=== PATIENT | female | born 1985 | race Hispanic/Latino ===

== ENCOUNTER 2022-05-29 07:48 | Inpatient (IN) | payer OTHER ==
[2022-05-29] VITALS (21 sets, daily range): BP systolic 86–121; BP diastolic 47–71
[~2022-05-29] VITALS: Ht 167.6 cm; Wt 87.5 kg
[2022-05-29] MEDS ORDERED: MORPHINE 4 MG SYG ONE (08:21)
[2022-05-29] MEDS ORDERED: 0.9%NACL 1000ML 1,000 ML IV ONE ×3 (08:21→09:30)
[2022-05-29] MEDS ORDERED: ZOSYN 3.375GM+NS 50ML 50 ML ONE (08:21)
[2022-05-29] MEDS ORDERED: ONDANSETRON 4MG INJ ONE (08:21)
[2022-05-29] MEDS ORDERED: ONDANSETRON 4MG INJ IVP ONE (08:30)
[2022-05-29] MEDS ORDERED: MORPHINE 4 MG SYG IVP ONE (08:30)
[2022-05-29] MEDS: 0.9%NACL 1000ML 1,000 ML IV SCH ×2 (08:30→15:25)
[2022-05-29] MEDS ORDERED: ZOSYN 3.375GM +NS 50ML IV SCH (08:30)
[2022-05-29 08:42] LABS: BASOPHILS % (AUTO) 0.5 % (0.0-5.0); EOSINOPHILS % (AUTO) 0.6 % (0.0-8.0); HEMATOCRIT 37.5 % (36-48); LYMPHOCYTES % (AUTO) 9.4 % (21.0-51.0); MEAN CORPUSCULAR HEMOGLOBIN 27.4 pg (27.0-33.0); MEAN CORPUSCULAR HGB CONC 33.3 g/dL (32.0-36.0); MEAN CORPUSCULAR VOLUME 82.1 fL (79-99); MONOCYTES % (AUTO) 7.5 % (3.0-13.0); NEUTROPHILS % (AUTO) 78.6 % (40.0-77.0); PLATELET COUNT (AUTO) 372 K/uL (130-400); RED BLOOD CELL COUNT(AUTO) 4.57 MIL/uL (4.00-5.50); RED CELL DISTRIBUTION WIDTH 12.7 % (11.0-15.5); WHITE BLOOD COUNT (AUTO) 19.5 K/uL (4.8-10.8)
[2022-05-29 08:44] LABS: APPEARANCE,URINE SL CLOUDY (CLEAR); BILIRUBIN,URINE SMALL (NEGATIVE); COLOR,URINE YELLOW (YELLOW); GLUCOSE, URINE (UA) >=1000 mg/dL (NEGATIVE); KETONES,URINE >=80 mg/dL (NEGATIVE); LEUKOCYTE ESTERASE ,URINE NEGATIVE (NEGATIVE); NITRATE,URINE NEGATIVE (NEGATIVE); OCCULT BLOOD,URINE MODERATE (NEGATIVE); PROTEIN,URINE TRACE mg/dL (NEGATIVE)
[2022-05-29 08:51] LABS: INR 0.99 (0.85-1.15); PROTHROMBIN TIME 10.8 SEC (9.6-11.6)
[2022-05-29 08:52] LABS: PARTIAL THROMBOPLASTIN TIME 30.5 SEC (26.3-35.5)
[2022-05-29 08:57] LABS: SQUAMOUS EPITHELIAL CELL,UR 30-50 /HPF (0-2); YEAST,URINE BUDDING Few /HPF (None Seen)
[2022-05-29 08:58] LABS: BACTERIA,URINE Few /HPF (None Seen)
[2022-05-29 09:09] LABS: ALBUMIN 2.4 g/dL (3.5-5.0); CREATININE 0.7 mg/dL (0.5-1.5); POTASSIUM 3.2 mmol/L (3.5-5.1); TOTAL PROTEIN, SERUM 7.3 g/dL (6.0-8.3)
[2022-05-29 09:18] LABS: ABG OXYGEN SATURATION 53.2 % (95.0-99.0); BASE EXCESS,VENOUS BLOOD GAS -2.6 (-2.0-3.0); HCO3,VENOUS BLOOD GAS 22.7 (21.0-28.0); PCO2,VENOUS BLOOD GAS 41 (32-45); PH,VENOUS BLOOD GAS 7.357 (7.350-7.450)
[2022-05-29] MEDS ORDERED: POTASSIUM BICARB/CIT AC 25 MEQ TABLET.EFF ONE (09:23)
[2022-05-29] MEDS ORDERED: TETANUS/DIPHTHERIA TOXOID [ADULT] 0.5 ML VIAL IM ONE (09:30)
[2022-05-29] MEDS ORDERED: POTASSIUM BICARB/CIT AC 25 MEQ TABLET.EFF PO ONE (09:30)
[2022-05-29] MEDS ORDERED: IOHEXOL 350 MG/ML 100ML INFUS..BTL IV ONE (09:40)
[2022-05-29] MEDS ORDERED: FENTANYL CITRATE PF 50 MCG/1 ML 5ML AMP IV ONE (12:22)
[2022-05-29] MEDS ORDERED: ROCURONIUM 10MG/1ML SYR 10 MG/ML ML ONE (12:22)
[2022-05-29] MEDS ORDERED: MIDAZOLAM HCL 1 MG/ML 2ML VIAL ONE (12:22)
[2022-05-29] MEDS ORDERED: GENTAMICIN 120 MG IN 100ML NS 100 ML IV SCH (12:30)
[2022-05-29] MEDS: INSULIN R PO SS1 SQ SCH ×2 (12:30→20:30)
[2022-05-29] MEDS ORDERED: METOCLOPRAMIDE 10 MG/2 ML VIAL ONE (12:56)
[2022-05-29] MEDS: CLINDAMYCIN IVPB 900MG/50ML 50 ML IV SCH ×2 (13:03→20:48)
[2022-05-29] MEDS ORDERED: HYDROMORPHONE 1 MG INJ ONE (13:09)
[2022-05-29] MEDS ORDERED: GLYCOPYRROLATE 1 MG/5 ML SYRINGE ONE (13:54)
[2022-05-29] MEDS ORDERED: NEOSTIGMINE 5MG/5ML SYR IV ONE (13:54)
[2022-05-29] MEDS ORDERED: FENTANYL CITRATE PF 50 MCG/1 ML 2ML VIAL ONE (13:55)
[2022-05-29] MEDS ORDERED: KETOROLAC 30MG VIAL (30MG/ML) ONE (13:58)
[2022-05-29] MEDS ORDERED: ACETAMINOPHEN WITH CODEINE 1 TAB TAB PO PRN (14:30)
[2022-05-29] MEDS ORDERED: FLUCONAZOLE 100 MG TAB PO ONE (14:30)
[2022-05-29] MEDS ORDERED: BISACODYL 10 MG SUPP.RECT RC PRN (14:30)
[2022-05-29] MEDS ORDERED: POTASSIUM CHLORIDE 10MEQ/100ML 100 ML IV PRN (14:30)
[2022-05-29] MEDS ORDERED: PROMETHAZINE HCL 25 MG/ML 1ML AMPULE IM PRN ×2 (14:30)
[2022-05-29] MEDS ORDERED: 0.9%NACL 1000ML 1,000 ML IV SCH ×2 (14:30)
[2022-05-29] MEDS ORDERED: MEPERIDINE-PF 75 MG/ML SYG IM PRN (14:30)
[2022-05-29] MEDS ORDERED: ONDANSETRON 4MG INJ IVP PRN (14:30)
[2022-05-29] MEDS ORDERED: NAPR220C15 PO (16:19)
[2022-05-29] MEDS ORDERED: INSULIN HUMULIN R 100 UNIT/ML 3ML SQ SCH (16:30)
[2022-05-29] MEDS: METFORMIN HCL 500 MG TABLET PO SCH (16:53)
[2022-05-29] MEDS ORDERED: LIDOCAINE HCL-MPF 1% 2ML VIAL IV PRN (19:30)
[2022-05-29] MEDS ORDERED: POTASSIUM CHLORIDE 20MEQ/100ML 100 ML IV PRN (19:30)
[2022-05-29] MEDS ORDERED: POTASSIUM CHLORIDE 10% ELIXIR 20 MEQ/15 ML UDCUP PO PRN (19:30)
[2022-05-29] MEDS: PROMETHAZINE HCL 25 MG/ML 1ML AMPULE IM PRN (20:05)
[2022-05-29] MEDS: CEFTRIAXONE 1G VIAL IVP SCH (20:47)
[2022-05-29] MEDS: SIMETHICONE 80 MG TAB.CHEW PO PRN (20:49)
[2022-05-29] MEDS: DOCUSATE SODIUM 100 MG CAP PO PRN (20:49)
[2022-05-29] MEDS: GENTAMICIN 80 MG/NS 100 ML PB 100 ML IV SCH (20:49)
[2022-05-29 21:19] LABS: CREATININE 0.5 mg/dL (0.5-1.5); POTASSIUM 3.6 mmol/L (3.5-5.1)
[2022-05-29] MEDS: KCL 20 MEQ ERTAB PO PRN ×2 (21:51→23:41)
[2022-05-29] MEDS: FAMOTIDINE 20MG TAB PO SCH (21:52)
[2022-05-29] MEDS: INSULIN HUMULIN R 100 UNIT/ML 3ML SQ SCH (22:05)
[2022-05-29] MEDS: CALDOLOR 800MG+NS 250ML 250 ML IV SCH (22:47)
[2022-05-30] MEDS: INSULIN R PO SS1 SQ SCH ×3 (00:30→08:30)
[2022-05-30 03:38] VITALS: BP 106/66
[2022-05-30] MEDS: 0.9%NACL 1000ML 1,000 ML IV SCH ×2 (04:35→21:56)
[2022-05-30 05:49] LABS: HEMATOCRIT 26.1 % (36-48); MEAN CORPUSCULAR HGB CONC 31.8 g/dL (32.0-36.0); RED BLOOD CELL COUNT(AUTO) 3.07 MIL/uL (4.00-5.50); RED CELL DISTRIBUTION WIDTH 13.1 % (11.0-15.5); WHITE BLOOD COUNT (AUTO) 18.8 K/uL (4.8-10.8)
[2022-05-30] MEDS: CLINDAMYCIN IVPB 900MG/50ML 50 ML IV SCH ×3 (05:49→21:00)
[2022-05-30] MEDS: GENTAMICIN 80 MG/NS 100 ML PB 100 ML IV SCH ×3 (05:49→21:56)
[2022-05-30 05:59] LABS: CREATININE 0.6 mg/dL (0.5-1.5); POTASSIUM 4.1 mmol/L (3.5-5.1)
[2022-05-30 06:04] LABS: HEMOGLOBIN A1C 11.1 % (4.0-6.0)
[2022-05-30] MEDS: INSULIN HUMULIN R 100 UNIT/ML 3ML SQ SCH ×6 (07:53→20:48)
[2022-05-30] MEDS: CALDOLOR 800MG+NS 250ML 250 ML IV SCH (07:55)
[2022-05-30] MEDS: FAMOTIDINE 20MG TAB PO SCH ×2 (07:55→20:47)
[2022-05-30] MEDS: METFORMIN HCL 500 MG TABLET PO SCH (07:55)
[2022-05-30] MEDS: DOCUSATE SODIUM 100 MG CAP PO PRN ×2 (07:59→20:47)
[2022-05-30 08:23] VITALS: BP 104/71
[2022-05-30 12:07] VITALS: BP 118/65
[2022-05-30] MEDS: IBUPROFEN 800 MG TAB PO SCH ×2 (14:27→21:53)
[2022-05-30 16:18] VITALS: BP 115/72
[2022-05-30] MEDS: HYDROCODONE/ACETAMINOPHEN 5/325 MG TAB PO PRN (17:33)
[2022-05-30] MEDS: CEFTRIAXONE 1G VIAL IVP SCH (18:40)
[2022-05-30 19:25] VITALS: BP 116/73
[2022-05-30] MEDS ORDERED: INSULIN GLARGINE 100 UNITS/ML 10 ML VIAL SQ SCH (21:00)
[2022-05-30] MEDS: SIMETHICONE 80 MG TAB.CHEW PO PRN (21:53)
[2022-05-30 23:05] VITALS: BP 107/72
[2022-05-31 02:45] VITALS: BP 113/72
[2022-05-31] MEDS: HYDROCODONE/ACETAMINOPHEN 5/325 MG TAB PO PRN ×2 (03:14→18:14)
[2022-05-31] MEDS: CLINDAMYCIN IVPB 900MG/50ML 50 ML IV SCH ×3 (05:16→20:45)
[2022-05-31] MEDS: GENTAMICIN 80 MG/NS 100 ML PB 100 ML IV SCH ×3 (05:53→21:13)
[2022-05-31] MEDS: IBUPROFEN 800 MG TAB PO SCH ×3 (05:58→22:24)
[2022-05-31 07:31] VITALS: BP 115/77
[2022-05-31] MEDS: FAMOTIDINE 20MG TAB PO SCH ×2 (08:15→20:46)
[2022-05-31] MEDS: INSULIN HUMULIN R 100 UNIT/ML 3ML SQ SCH ×7 (08:19→21:07)
[2022-05-31] MEDS: 0.9%NACL 1000ML 1,000 ML IV SCH ×3 (09:55→22:30)
[2022-05-31 11:31] LABS: HEMATOCRIT 27.2 % (36-48); MEAN CORPUSCULAR HEMOGLOBIN 26.8 pg (27.0-33.0); MEAN CORPUSCULAR HGB CONC 31.6 g/dL (32.0-36.0); MEAN CORPUSCULAR VOLUME 84.7 fL (79-99); RED BLOOD CELL COUNT(AUTO) 3.21 MIL/uL (4.00-5.50); RED CELL DISTRIBUTION WIDTH 13.2 % (11.0-15.5); WHITE BLOOD COUNT (AUTO) 14.6 K/uL (4.8-10.8)
[2022-05-31 11:39] LABS: CREATININE 0.5 mg/dL (0.5-1.5); POTASSIUM 3.4 mmol/L (3.5-5.1)
[2022-05-31 12:00] VITALS: BP 115/72
[2022-05-31] MEDS: PROMETHAZINE HCL 25 MG/ML 1ML AMPULE IM PRN (15:38)
[2022-05-31] MEDS: MEPERIDINE-PF 50 MG/ML SYG IM PRN (15:39)
[2022-05-31] MEDS ORDERED: MEPERIDINE-PF 25 MG/ML SYG ONE (15:45)
[2022-05-31] MEDS ORDERED: MORPHINE 4 MG SYG ONE (16:29)
[2022-05-31] MEDS ORDERED: MORPHINE 4 MG SYG IVP PRN (16:30)
[2022-05-31] MEDS ORDERED: MEPERIDINE-PF 25 MG/ML SYG IVP ONE (16:30)
[2022-05-31 17:30] VITALS: BP 126/83
[2022-05-31 19:50] VITALS: BP 137/91
[2022-05-31] MEDS ORDERED: INSULIN GLARGINE 100 UNITS/ML 10 ML VIAL SQ SCH (21:00)
[2022-05-31 23:00] VITALS: BP 139/84
[2022-06-01 02:55] VITALS: BP 124/72
[2022-06-01] MEDS: CLINDAMYCIN IVPB 900MG/50ML 50 ML IV SCH (05:11)
[2022-06-01] MEDS: GENTAMICIN 80 MG/NS 100 ML PB 100 ML IV SCH (05:30)
[2022-06-01] MEDS: 0.9%NACL 1000ML 1,000 ML IV SCH ×2 (05:31→05:32)
[2022-06-01] MEDS: IBUPROFEN 800 MG TAB PO SCH ×3 (07:28→23:05)
[2022-06-01] MEDS: INSULIN HUMULIN R 100 UNIT/ML 3ML SQ SCH ×7 (07:30→21:05)
[2022-06-01 07:40] VITALS: BP 118/70
[2022-06-01] MEDS: FAMOTIDINE 20MG TAB PO SCH ×2 (08:11→20:23)
[2022-06-01 11:36] VITALS: BP 123/73
[2022-06-01] MEDS: DOCUSATE SODIUM 100 MG CAP PO PRN (12:24)
[2022-06-01] MEDS: HYDROCODONE/ACETAMINOPHEN 5/325 MG TAB PO PRN (12:25)
[2022-06-01 17:07] VITALS: BP 127/76
[2022-06-01 20:05] VITALS: BP 131/84
[2022-06-01] MEDS: PROMETHAZINE HCL 25 MG/ML 1ML AMPULE IM PRN (20:24)
[2022-06-01] MEDS: MEPERIDINE-PF 50 MG/ML SYG IM PRN (20:25)
[2022-06-01 22:52] VITALS: BP 135/80
[2022-06-02 03:16] VITALS: BP 112/73
[2022-06-02] MEDS: HYDROCODONE/ACETAMINOPHEN 5/325 MG TAB PO PRN ×2 (05:13→17:38)
[2022-06-02] MEDS: IBUPROFEN 800 MG TAB PO SCH ×3 (06:34→22:52)
[2022-06-02 07:14] VITALS: BP 139/74
[2022-06-02] MEDS: INSULIN HUMULIN R 100 UNIT/ML 3ML SQ SCH ×4 (07:57→21:38)
[2022-06-02] MEDS: AMOXICILLIN 500 MG CAPSULE PO SCH ×2 (08:52→14:26)
[2022-06-02] MEDS: FAMOTIDINE 20MG TAB PO SCH ×2 (08:52→21:18)
[2022-06-02] MEDS: METFORMIN HCL 500 MG TABLET PO SCH ×3 (08:53→17:38)
[2022-06-02] MEDS: METRONIDAZOLE 500 MG TABLET PO SCH ×3 (08:53→21:18)
[2022-06-02 10:14] LABS: BASOPHILS % (AUTO) 0.2 % (0.0-5.0); EOSINOPHILS % (AUTO) 0.7 % (0.0-8.0); HEMATOCRIT 23.2 % (36-48); MEAN CORPUSCULAR HEMOGLOBIN 27.5 pg (27.0-33.0); MEAN CORPUSCULAR HGB CONC 32.8 g/dL (32.0-36.0); MEAN CORPUSCULAR VOLUME 84.1 fL (79-99); MONOCYTES % (AUTO) 5.6 % (3.0-13.0); NEUTROPHILS % (AUTO) 83.8 % (40.0-77.0); PLATELET COUNT (AUTO) 340 K/uL (130-400); RED BLOOD CELL COUNT(AUTO) 2.76 MIL/uL (4.00-5.50); RED CELL DISTRIBUTION WIDTH 13.1 % (11.0-15.5); WHITE BLOOD COUNT (AUTO) 16.2 K/uL (4.8-10.8)
[2022-06-02 10:27] LABS: RETICULOCYTE % (AUTO) 1.51 % (0.42-2.23)
[2022-06-02 10:32] LABS: CREATININE 0.6 mg/dL (0.5-1.5); POTASSIUM 3.4 mmol/L (3.5-5.1)
[2022-06-02 10:50] LABS: % IRON SATURATION 7.7 % (22-44)
[2022-06-02 10:52] LABS: THYROID STIMULATING HORMONE 1.55 uIU/mL (0.36-3.74)
[2022-06-02 11:20] VITALS: BP 107/69
[2022-06-02 11:29] LABS: CRP QUANTITATIVE 258.5 mg/L (0.00-9.0)
[2022-06-02 11:30] LABS: ERYTHROCYTE SEDIMENTATION RATE > 150 MM/HR (0-20)
[2022-06-02] MEDS: MEPERIDINE-PF 50 MG/ML SYG IM PRN (16:50)
[2022-06-02] MEDS: PROMETHAZINE HCL 25 MG/ML 1ML AMPULE IM PRN (16:50)
[2022-06-02 17:04] VITALS: BP 132/84
[2022-06-02 19:19] VITALS: BP 123/77
[2022-06-02] MEDS: KCL 20 MEQ ERTAB PO PRN ×2 (19:56→22:52)
[2022-06-02] MEDS ORDERED: COMPOUND IV MISC 1 EACH IVSOLN MISC PRN (20:30)
[2022-06-02] MEDS ORDERED: IRON SUCROSE COMPLEX 500 MG in 0.9% NACL 250ML 250 ML IV ONE (21:00)
[2022-06-02] MEDS ORDERED: INSULIN GLARGINE 100 UNITS/ML 10 ML VIAL SQ SCH (21:00)
[2022-06-02] MEDS ORDERED: EPOETIN ALFA-EPBX (NON-ESRD) 10,000 UNIT/ML VIAL SQ SCH (21:00)
[2022-06-02] MEDS: SIMETHICONE 80 MG TAB.CHEW PO PRN (21:17)
[2022-06-02] MEDS: AMOX/CLAV 500/125MG TAB PO SCH (21:18)
[2022-06-02] MEDS: DOCUSATE SODIUM 100 MG CAP PO PRN (21:18)
[2022-06-02 23:03] VITALS: BP 102/65
[2022-06-03] MEDS: HYDROCODONE/ACETAMINOPHEN 5/325 MG TAB PO PRN (00:55)
[2022-06-03 04:07] VITALS: BP 102/71
[2022-06-03] MEDS: AMOX/CLAV 500/125MG TAB PO SCH (04:48)
[2022-06-03] MEDS: IBUPROFEN 800 MG TAB PO SCH ×2 (06:22→14:44)
[2022-06-03] MEDS ORDERED: EPOETIN ALFA-EPBX (NON-ESRD) 10,000 UNIT/ML VIAL SQ SCH (07:30)
[2022-06-03 07:38] VITALS: BP 113/71
[2022-06-03 07:54] LABS: BASOPHILS % (AUTO) 0.3 % (0.0-5.0); EOSINOPHILS % (AUTO) 0.9 % (0.0-8.0); HEMATOCRIT 23.5 % (36-48); LYMPHOCYTES % (AUTO) 7.2 % (21.0-51.0); MEAN CORPUSCULAR HEMOGLOBIN 27.2 pg (27.0-33.0); MEAN CORPUSCULAR HGB CONC 31.5 g/dL (32.0-36.0); MEAN CORPUSCULAR VOLUME 86.4 fL (79-99); MONOCYTES % (AUTO) 5.4 % (3.0-13.0); NEUTROPHILS % (AUTO) 84.5 % (40.0-77.0); PLATELET COUNT (AUTO) 374 K/uL (130-400); RED BLOOD CELL COUNT(AUTO) 2.72 MIL/uL (4.00-5.50); RED CELL DISTRIBUTION WIDTH 13.1 % (11.0-15.5); WHITE BLOOD COUNT (AUTO) 18.5 K/uL (4.8-10.8)
[2022-06-03] MEDS ORDERED: SENNOSIDES 8.6 MG TABLET PO SCH (08:30)
[2022-06-03] MEDS: FAMOTIDINE 20MG TAB PO SCH (08:59)
[2022-06-03] MEDS: DOCUSATE SODIUM 100 MG CAP PO PRN (08:59)
[2022-06-03] MEDS: METFORMIN HCL 500 MG TABLET PO SCH (08:59)
[2022-06-03] MEDS: METRONIDAZOLE 500 MG TABLET PO SCH (08:59)
[2022-06-03] MEDS: INSULIN HUMULIN R 100 UNIT/ML 3ML SQ SCH ×7 (09:15→17:21)
[2022-06-03 11:20] VITALS: BP 104/69
[2022-06-03] MEDS ORDERED: ZOSYN 3.375GM +NS 50ML IV SCH (11:30)
[2022-06-03] MEDS ORDERED: LINEZOLID 600 MG/ISO-OSM 300 ML IV SCH (12:00)
[2022-06-03] MEDS ORDERED: IOHEXOL 350 MG/ML 100ML INFUS..BTL IV ONE (12:01)
[2022-06-03] MEDS ORDERED: MORPHINE 4 MG SYG IVP PRN (12:30)
[2022-06-03] MEDS ORDERED: AMOX/CLAV 875/125MG TAB PO SCH (14:00)
[2022-06-03 16:41] VITALS: BP 117/72
[2022-06-03] MEDS ORDERED: IBUP-2077 PO (17:37)
[2022-06-03] MEDS ORDERED: AMOX-426 PO (17:37)
[2022-06-03] MEDS ORDERED: METF-444 PO (17:38)
[2022-06-03] MEDS ORDERED: INSLAN SQ (17:38)
[2022-06-03] MEDS ORDERED: INSULIN GLARGINE 100 UNITS/ML 10 ML VIAL SQ SCH (21:00)
== END 2022-06-03 18:45 | disposition home or self-care (01) | DRG 746 ==
LOC: EDH 07:48 → EDHIP 10:27 → WSH 11:36
PROVIDERS: ADMIT Obstetrics & Gynecology; ATTEND Obstetrics & Gynecology
PROC: 0U9M0ZZ Drainage of Vulva, Open Approach (ICD-10-PCS; principal; 2022-05-29 13:09)
DX: N76.4 Abscess of vulva (principal); N39.0 Urinary tract infection, site not specified; E11.65 Type 2 diabetes mellitus with hyperglycemia; E66.9 Obesity, unspecified; E87.6 Hypokalemia; Z68.31 Body mass index [BMI] 31.0-31.9, adult; Z20.822 Contact with and (suspected) exposure to COVID-19; Z83.3 Family history of diabetes mellitus; Z82.49 Family history of ischemic heart disease and other diseases of the circulatory system; D50.9 Iron deficiency anemia, unspecified
CPT/HCPCS: 36415; 36600; 59025; 72193; 80048; 80053; 81001; 81025; 82010; 82728; 82746; 82803; 82948; 83036; 83540; 83550; 83605; 84132; 84145; 84443; 85025; 85027; 85045; 85610; 85651; 85730; 86140; 86850; 86900; 86901; 87040; 87070; 87076; 87088; 87635; 90714; A4344; A4606; G0378; J0696; J1170; J1580; J1741; J1756; J1815; J1885; J2020; J2175; J2250; J2270; J2405; J2543; J2550; J2710; J2765; J3010; J3490; J7030; J7050; J7120; Q9967

== ENCOUNTER → 2022-06-07 | Outpatient (CLI) | payer OTHER ==
[~2022-06-07] MED LIST: AMOX-426 PO; IBUP-2077 PO; INSLAN SQ; METF-444 PO
== END | disposition home or self-care (01) ==
LOC: WHH 13:45
PROVIDERS: ATTEND Family Medicine
DX: T81.89XA Other complications of procedures, not elsewhere classified, initial encounter (principal); S31.40XA Unspecified open wound of vagina and vulva, initial encounter; E11.9 Type 2 diabetes mellitus without complications; E66.9 Obesity, unspecified; Z68.31 Body mass index [BMI] 31.0-31.9, adult; Y83.8 Other surgical procedures as the cause of abnormal reaction of the patient, or of later complication, without mention of misadventure at the time of the procedure; X58.XXXA Exposure to other specified factors, initial encounter; Y93.89 Activity, other specified; Y92.238 Other place in hospital as the place of occurrence of the external cause; Y99.8 Other external cause status
CPT/HCPCS: 97606; 99211

== ENCOUNTER 2022-06-10 12:06 | Inpatient (IN) | payer OTHER ==
[~2022-06-10] VITALS: Ht 160 cm; Wt 81.4 kg
[~2022-06-10 12:06] MED LIST changes: -AMP/SULBAC 3GM+NS 100ML 100 ML IV SCH; -LIDOCAINE HCL 4% LTA SOL 4 ML VIAL TP ONE
[2022-06-10] MEDS ORDERED: ONDANSETRON 4MG INJ IV PRN (14:00)
[2022-06-10] MEDS ORDERED: BISACODYL 5 MG TABLET.DR PO PRN (14:00)
[2022-06-10] MEDS ORDERED: VANCOMYCIN PROTOCOL PER PHARMACY IV PRN (14:00)
[2022-06-10] MEDS ORDERED: ACETAMINOPHEN 325 MG TAB PO PRN (14:00)
[2022-06-10 15:15] LABS: HEMOGLOBIN A1C 11.1 % (4.0-6.0)
[2022-06-10] MEDS: CEFEPIME HCL 1 GM VIAL IVP SCH ×2 (15:42→22:26)
[2022-06-10] MEDS: VANCOMYCIN 1G/250ML KIT 250 ML IV SCH (15:42)
[2022-06-10] MEDS: HYDROMORPHONE 0.5 MG SYG (0.5MG/0.5ML) IVP PRN ×3 (15:43→22:26)
[2022-06-10 16:16] VITALS: BP 119/76
[2022-06-10] MEDS: INSULIN LISPRO 100 UNIT/ML 3ML SQ SCH ×3 (18:22→20:51)
[2022-06-10] MEDS: FAMOTIDINE 20MG VIAL IV SCH (20:48)
[2022-06-10] MEDS: INSULIN GLARGINE 100 UNITS/ML 10 ML VIAL SQ SCH (20:49)
[2022-06-10 20:54] VITALS: BP 126/78
[2022-06-10] MEDS ORDERED: TRAZODONE HCL 50 MG TAB ONE (22:44)
[2022-06-10] MEDS ORDERED: FLUOXETINE HCL 20 MG CAPSULE ONE (22:44)
[2022-06-11 00:10] VITALS: BP 109/74
[2022-06-11] MEDS: HYDROMORPHONE 0.5 MG SYG (0.5MG/0.5ML) IVP PRN ×5 (03:07→20:42)
[2022-06-11] MEDS: VANCOMYCIN 1G/250ML KIT 250 ML IV SCH ×2 (03:13→14:43)
[2022-06-11 05:03] VITALS: BP 121/68
[2022-06-11 05:21] LABS: BASOPHILS % (AUTO) 0.3 % (0.0-5.0); EOSINOPHILS % (AUTO) 1.8 % (0.0-8.0); HEMATOCRIT 29.3 % (36-48); LYMPHOCYTES % (AUTO) 16.1 % (21.0-51.0); MEAN CORPUSCULAR HEMOGLOBIN 26.9 pg (27.0-33.0); MEAN CORPUSCULAR HGB CONC 31.7 g/dL (32.0-36.0); MEAN CORPUSCULAR VOLUME 84.7 fL (79-99); MONOCYTES % (AUTO) 6.5 % (3.0-13.0); NEUTROPHILS % (AUTO) 74.3 % (40.0-77.0); RED BLOOD CELL COUNT(AUTO) 3.46 MIL/uL (4.00-5.50); RED CELL DISTRIBUTION WIDTH 13.7 % (11.0-15.5); WHITE BLOOD COUNT (AUTO) 11.7 K/uL (4.8-10.8)
[2022-06-11 05:30] LABS: PLATELET COUNT (AUTO) 751 K/uL (130-400)
[2022-06-11 05:41] LABS: ALBUMIN 2.2 g/dL (3.5-5.0); CREATININE 0.7 mg/dL (0.5-1.5); TOTAL PROTEIN, SERUM 7.3 g/dL (6.0-8.3)
[2022-06-11] MEDS ORDERED: IOHEXOL 350 MG/ML 100ML INFUS..BTL IV ONE (05:52)
[2022-06-11 05:54] LABS: CRP QUANTITATIVE 348.9 mg/L (0.00-9.0)
[2022-06-11] MEDS: CEFEPIME HCL 1 GM VIAL IVP SCH ×3 (06:17→21:57)
[2022-06-11] MEDS: INSULIN LISPRO 100 UNIT/ML 3ML SQ SCH ×7 (06:38→20:50)
[2022-06-11 07:20] VITALS: BP 132/76
[2022-06-11] MEDS ORDERED: LIDOCAINE HCL MPF 1% 5ML VIAL ONE (09:56)
[2022-06-11] MEDS ORDERED: HYDROMORPHONE 1 MG INJ IVP SCH (10:00)
[2022-06-11] MEDS: FAMOTIDINE 20MG VIAL IV SCH ×2 (10:26→20:40)
[2022-06-11] MEDS: ENOXAPARIN SODIUM 40 MG/0.4 ML SYRINGE SQ SCH (10:26)
[2022-06-11 11:10] VITALS: BP 125/76
[2022-06-11 15:15] VITALS: BP 122/73
[2022-06-11] MEDS: MORPHINE 4 MG SYG IVP PRN (16:44)
[2022-06-11] MEDS: ACETAMINOPHEN 325 MG TAB PO PRN (18:28)
[2022-06-11 20:20] VITALS: BP 121/70
[2022-06-11] MEDS: INSULIN GLARGINE 100 UNITS/ML 10 ML VIAL SQ SCH (20:50)
[2022-06-12] VITALS (7 sets, daily range): BP systolic 114–134; BP diastolic 68–77
[2022-06-12] MEDS: MORPHINE 4 MG SYG IVP PRN ×2 (00:53→09:36)
[2022-06-12] MEDS: ACETAMINOPHEN 325 MG TAB PO PRN (03:18)
[2022-06-12] MEDS: HYDROMORPHONE 0.5 MG SYG (0.5MG/0.5ML) IVP PRN ×2 (04:28→11:15)
[2022-06-12] MEDS: VANCOMYCIN 1G/250ML KIT 250 ML IV SCH (04:28)
[2022-06-12 05:40] LABS: BASOPHILS % (AUTO) 0.5 % (0.0-5.0); EOSINOPHILS % (AUTO) 1.5 % (0.0-8.0); HEMATOCRIT 25.4 % (36-48); LYMPHOCYTES % (AUTO) 15.7 % (21.0-51.0); MEAN CORPUSCULAR HEMOGLOBIN 26.7 pg (27.0-33.0); MEAN CORPUSCULAR HGB CONC 31.9 g/dL (32.0-36.0); MEAN CORPUSCULAR VOLUME 83.8 fL (79-99); MONOCYTES % (AUTO) 8.7 % (3.0-13.0); NEUTROPHILS % (AUTO) 72.8 % (40.0-77.0); PLATELET COUNT (AUTO) 650 K/uL (130-400); RED BLOOD CELL COUNT(AUTO) 3.03 MIL/uL (4.00-5.50); RED CELL DISTRIBUTION WIDTH 13.8 % (11.0-15.5)
[2022-06-12 05:53] LABS: ALBUMIN 2.1 g/dL (3.5-5.0); CREATININE 0.7 mg/dL (0.5-1.5); POTASSIUM 3.7 mmol/L (3.5-5.1); TOTAL PROTEIN, SERUM 6.9 g/dL (6.0-8.3)
[2022-06-12 06:00] LABS: CRP QUANTITATIVE 232.1 mg/L (0.00-9.0)
[2022-06-12] MEDS: CEFEPIME HCL 1 GM VIAL IVP SCH ×3 (06:13→22:22)
[2022-06-12] MEDS: INSULIN LISPRO 100 UNIT/ML 3ML SQ SCH ×7 (06:19→22:20)
[2022-06-12] MEDS: FAMOTIDINE 20MG VIAL IV SCH ×2 (09:33→22:22)
[2022-06-12] MEDS: ENOXAPARIN SODIUM 40 MG/0.4 ML SYRINGE SQ SCH (09:33)
[2022-06-12] MEDS: SODIUM HYPOCHLORITE 0.25% [HALF STRENGTH] 473 ML TOPICAL SOLN TP SCH (11:15)
[2022-06-12] MEDS ORDERED: HYDROMORPHONE 1 MG INJ ONE (14:11)
[2022-06-12] MEDS ORDERED: OXYCODONE HCL 20 MG TAB.SR.12H PO SCH (14:30)
[2022-06-12] MEDS ORDERED: HYDROMORPHONE 1 MG INJ IVP PRN (14:30)
[2022-06-12] MEDS: INSULIN GLARGINE 100 UNITS/ML 10 ML VIAL SQ SCH (22:19)
[2022-06-12] MEDS: OXYCODONE HCL 20 MG TAB.SR.12H PO SCH (22:22)
[2022-06-13 03:42] VITALS: BP 128/82
[2022-06-13] MEDS: ACETAMINOPHEN 325 MG TAB PO PRN (04:44)
[2022-06-13 04:50] LABS: BASOPHILS % (AUTO) 0.6 % (0.0-5.0); EOSINOPHILS % (AUTO) 1.9 % (0.0-8.0); HEMATOCRIT 26.9 % (36-48); MEAN CORPUSCULAR HEMOGLOBIN 26.9 pg (27.0-33.0); MEAN CORPUSCULAR HGB CONC 32.3 g/dL (32.0-36.0); MEAN CORPUSCULAR VOLUME 83.3 fL (79-99); MONOCYTES % (AUTO) 10.3 % (3.0-13.0); NEUTROPHILS % (AUTO) 66.8 % (40.0-77.0); PLATELET COUNT (AUTO) 629 K/uL (130-400); RED BLOOD CELL COUNT(AUTO) 3.23 MIL/uL (4.00-5.50); RED CELL DISTRIBUTION WIDTH 13.4 % (11.0-15.5)
[2022-06-13 05:11] LABS: % IRON SATURATION 24.7 % (22-44)
[2022-06-13 05:25] LABS: ALBUMIN 2.1 g/dL (3.5-5.0); CREATININE 0.7 mg/dL (0.5-1.5); POTASSIUM 3.5 mmol/L (3.5-5.1); THYROID STIMULATING HORMONE 1.1 uIU/mL (0.36-3.74)
[2022-06-13 05:41] LABS: CRP QUANTITATIVE 226.3 mg/L (0.00-9.0)
[2022-06-13] MEDS: CEFEPIME HCL 1 GM VIAL IVP SCH ×3 (06:26→22:21)
[2022-06-13] MEDS: INSULIN LISPRO 100 UNIT/ML 3ML SQ SCH ×7 (06:58→20:21)
[2022-06-13 08:00] VITALS: BP 105/62
[2022-06-13] MEDS: FAMOTIDINE 20MG VIAL IV SCH ×2 (08:34→20:34)
[2022-06-13] MEDS: OXYCODONE HCL 20 MG TAB.SR.12H PO SCH ×2 (08:34→20:35)
[2022-06-13] MEDS: ENOXAPARIN SODIUM 40 MG/0.4 ML SYRINGE SQ SCH (08:35)
[2022-06-13 11:23] VITALS: BP 114/67
[2022-06-13] MEDS: HYDROMORPHONE 0.5 MG SYG (0.5MG/0.5ML) IVP PRN ×2 (14:10→21:04)
[2022-06-13] MEDS: SODIUM HYPOCHLORITE 0.25% [HALF STRENGTH] 473 ML TOPICAL SOLN TP SCH (15:34)
[2022-06-13 16:00] VITALS: BP 122/81
[2022-06-13] MEDS ORDERED: LORAZEPAM 2 MG/ML 1 ML VIAL IVP PRN (17:00)
[2022-06-13] MEDS ORDERED: PHARMACY COMMUNICATION MISC SCH (17:30)
[2022-06-13] MEDS ORDERED: GADOTERATE MEGLUMINE 10 MMOL/20 ML VIAL IV ONE (18:36)
[2022-06-13] MEDS ORDERED: DIAZEPAM 5 MG/ML 2 ML SYG ONE (18:51)
[2022-06-13] MEDS ORDERED: DIAZEPAM 5 MG/ML 2 ML SYG IVP SCH (19:00)
[2022-06-13] MEDS ORDERED: DIAZEPAM 5 MG/ML 2 ML SYG IVP ONE (19:30)
[2022-06-13 19:35] VITALS: BP 110/74
[2022-06-13] MEDS: INSULIN GLARGINE 100 UNITS/ML 10 ML VIAL SQ SCH (20:36)
[2022-06-13 23:20] VITALS: BP 118/72
[2022-06-14 03:13] VITALS: BP 110/67
[2022-06-14 04:53] LABS: BASOPHILS % (AUTO) 0.7 % (0.0-5.0); LYMPHOCYTES % (AUTO) 18.3 % (21.0-51.0); MEAN CORPUSCULAR HEMOGLOBIN 26.5 pg (27.0-33.0); MEAN CORPUSCULAR HGB CONC 31.9 g/dL (32.0-36.0); MEAN CORPUSCULAR VOLUME 83.1 fL (79-99); MONOCYTES % (AUTO) 11.2 % (3.0-13.0); NEUTROPHILS % (AUTO) 67.2 % (40.0-77.0); PLATELET COUNT (AUTO) 592 K/uL (130-400); RED BLOOD CELL COUNT(AUTO) 3.13 MIL/uL (4.00-5.50); RED CELL DISTRIBUTION WIDTH 13.5 % (11.0-15.5)
[2022-06-14 05:08] LABS: CREATININE 0.7 mg/dL (0.5-1.5); POTASSIUM 3.4 mmol/L (3.5-5.1)
[2022-06-14 05:23] LABS: CRP QUANTITATIVE 197.5 mg/L (0.00-9.0)
[2022-06-14] MEDS: CEFEPIME HCL 1 GM VIAL IVP SCH ×3 (06:03→22:11)
[2022-06-14] MEDS: INSULIN LISPRO 100 UNIT/ML 3ML SQ SCH ×7 (06:50→21:00)
[2022-06-14 08:00] VITALS: BP 105/71
[2022-06-14] MEDS: FLUCONAZOLE 200 MG/NS 100 ML 100 ML IV SCH (10:37)
[2022-06-14] MEDS: FAMOTIDINE 20MG VIAL IV SCH ×2 (10:37→20:11)
[2022-06-14] MEDS: OXYCODONE HCL 20 MG TAB.SR.12H PO SCH ×2 (10:49→20:11)
[2022-06-14] MEDS: ENOXAPARIN SODIUM 40 MG/0.4 ML SYRINGE SQ SCH (10:49)
[2022-06-14] MEDS: SODIUM HYPOCHLORITE 0.25% [HALF STRENGTH] 473 ML TOPICAL SOLN TP SCH (10:49)
[2022-06-14 11:41] VITALS: BP 115/73
[2022-06-14 16:00] VITALS: BP 126/76
[2022-06-14 20:00] VITALS: BP 115/70
[2022-06-14] MEDS ORDERED: PHARMACY COMMUNICATION MISC SCH (22:00)
[2022-06-14] MEDS: INSULIN GLARGINE 100 UNITS/ML 10 ML VIAL SQ SCH (22:28)
[2022-06-14] MEDS: MORPHINE 4 MG SYG IVP PRN (23:46)
[2022-06-14] MEDS: LEVOFLOXACIN 500 MG/D5W 100 ML 100 ML IV SCH (23:46)
[2022-06-14] MEDS: METRONIDAZOLE 500MG/100ML BAG 100 ML IVPB SCH (23:47)
[2022-06-15] VITALS (24 sets, daily range): BP systolic 92–136; BP diastolic 56–81
[2022-06-15] MEDS: INSULIN LISPRO 100 UNIT/ML 3ML SQ SCH ×7 (05:42→20:49)
[2022-06-15] MEDS: CEFEPIME HCL 1 GM VIAL IVP SCH (06:11)
[2022-06-15] MEDS: METRONIDAZOLE 500MG/100ML BAG 100 ML IVPB SCH ×3 (06:11→23:38)
[2022-06-15 06:12] LABS: BASOPHILS % (AUTO) 0.6 % (0.0-5.0); EOSINOPHILS % (AUTO) 1.6 % (0.0-8.0); HEMATOCRIT 27.8 % (36-48); LYMPHOCYTES % (AUTO) 17.4 % (21.0-51.0); MEAN CORPUSCULAR HEMOGLOBIN 26.1 pg (27.0-33.0); MEAN CORPUSCULAR HGB CONC 31.3 g/dL (32.0-36.0); MEAN CORPUSCULAR VOLUME 83.5 fL (79-99); MONOCYTES % (AUTO) 9.4 % (3.0-13.0); NEUTROPHILS % (AUTO) 70.4 % (40.0-77.0); PLATELET COUNT (AUTO) 646 K/uL (130-400); RED BLOOD CELL COUNT(AUTO) 3.33 MIL/uL (4.00-5.50); RED CELL DISTRIBUTION WIDTH 13.5 % (11.0-15.5); WHITE BLOOD COUNT (AUTO) 8.5 K/uL (4.8-10.8)
[2022-06-15 06:22] LABS: CREATININE 0.7 mg/dL (0.5-1.5); POTASSIUM 3.6 mmol/L (3.5-5.1)
[2022-06-15 07:49] LABS: CRP QUANTITATIVE 177.1 mg/L (0.00-9.0)
[2022-06-15] MEDS: ENOXAPARIN SODIUM 40 MG/0.4 ML SYRINGE SQ SCH (08:55)
[2022-06-15] MEDS: OXYCODONE HCL 20 MG TAB.SR.12H PO SCH ×2 (08:55→20:54)
[2022-06-15] MEDS: FAMOTIDINE 20MG VIAL IV SCH ×2 (09:56→20:48)
[2022-06-15] MEDS: SODIUM HYPOCHLORITE 0.25% [HALF STRENGTH] 473 ML TOPICAL SOLN TP SCH (09:56)
[2022-06-15] MEDS: FLUCONAZOLE 200 MG/NS 100 ML 100 ML IV SCH (09:56)
[2022-06-15] MEDS ORDERED: 0.9%NACL 1000ML 1,000 ML IV ONE (11:44)
[2022-06-15] MEDS ORDERED: SUCCINYLCHOLINE 200MG/10ML SYR ONE ×2 (12:17→12:24)
[2022-06-15] MEDS ORDERED: LIDOCAINE PF 100MG/5ML (2%) SYRINGE 5ML ONE ×2 (12:17→12:23)
[2022-06-15] MEDS ORDERED: DEXAMETHASONE SOD PHOSPHATE 10MG/ML 1ML VIAL ONE (12:17)
[2022-06-15] MEDS ORDERED: NEOSTIGMINE 5MG/5ML SYR IV ONE (12:17)
[2022-06-15] MEDS ORDERED: ROCURONIUM 10MG/1ML SYR 10 MG/ML ML ONE (12:17)
[2022-06-15] MEDS ORDERED: PROPOFOL 10 MG/ML 20ML VIAL IV ONE (12:17)
[2022-06-15] MEDS ORDERED: GLYCOPYRROLATE 1 MG/5 ML SYRINGE ONE (12:17)
[2022-06-15] MEDS ORDERED: ONDANSETRON 4MG INJ ONE (12:17)
[2022-06-15] MEDS ORDERED: MIDAZOLAM HCL 1 MG/ML 2ML VIAL ONE (12:17)
[2022-06-15] MEDS ORDERED: FENTANYL CITRATE PF 50 MCG/1 ML 2ML VIAL ONE (12:18)
[2022-06-15] MEDS ORDERED: MEPERIDINE-PF 25 MG/ML SYG ONE ×2 (13:23→14:01)
[2022-06-15] MEDS: MORPHINE 4 MG SYG IVP PRN (15:26)
[2022-06-15] MEDS ORDERED: TRAMADOL HCL 50 MG TABLET PO PRN (18:00)
[2022-06-15] MEDS: KETOROLAC 30MG VIAL (30MG/ML) IVP SCH (18:35)
[2022-06-15] MEDS: INSULIN GLARGINE 100 UNITS/ML 10 ML VIAL SQ SCH (20:50)
[2022-06-15] MEDS: LEVOFLOXACIN 500 MG/D5W 100 ML 100 ML IV SCH (23:38)
[2022-06-16] VITALS: BP 95/55
[2022-06-16] MEDS: KETOROLAC 30MG VIAL (30MG/ML) IVP SCH ×4 (00:18→17:58)
[2022-06-16 04:00] VITALS: BP 96/59
[2022-06-16 05:28] LABS: BASOPHILS % (AUTO) 0.7 % (0.0-5.0); EOSINOPHILS % (AUTO) 3.1 % (0.0-8.0); HEMATOCRIT 24.4 % (36-48); LYMPHOCYTES % (AUTO) 21.2 % (21.0-51.0); MEAN CORPUSCULAR HEMOGLOBIN 25.7 pg (27.0-33.0); MEAN CORPUSCULAR HGB CONC 30.7 g/dL (32.0-36.0); MEAN CORPUSCULAR VOLUME 83.6 fL (79-99); MONOCYTES % (AUTO) 11.2 % (3.0-13.0); PLATELET COUNT (AUTO) 532 K/uL (130-400); RED BLOOD CELL COUNT(AUTO) 2.92 MIL/uL (4.00-5.50); RED CELL DISTRIBUTION WIDTH 13.7 % (11.0-15.5); WHITE BLOOD COUNT (AUTO) 7.2 K/uL (4.8-10.8)
[2022-06-16] MEDS: METRONIDAZOLE 500MG/100ML BAG 100 ML IVPB SCH ×3 (05:38→21:49)
[2022-06-16 06:04] LABS: CREATININE 0.7 mg/dL (0.5-1.5); POTASSIUM 3.7 mmol/L (3.5-5.1)
[2022-06-16] MEDS: INSULIN LISPRO 100 UNIT/ML 3ML SQ SCH ×7 (06:30→21:00)
[2022-06-16 07:00] VITALS: BP 104/67
[2022-06-16] MEDS: OXYCODONE HCL 20 MG TAB.SR.12H PO SCH ×2 (09:48→21:49)
[2022-06-16] MEDS: FAMOTIDINE 20MG VIAL IV SCH ×2 (09:49→21:48)
[2022-06-16] MEDS: ENOXAPARIN SODIUM 40 MG/0.4 ML SYRINGE SQ SCH (09:49)
[2022-06-16] MEDS: SODIUM HYPOCHLORITE 0.25% [HALF STRENGTH] 473 ML TOPICAL SOLN TP SCH (09:49)
[2022-06-16 11:00] VITALS: BP 95/53
[2022-06-16 15:45] VITALS: BP 110/61
[2022-06-16 19:55] VITALS: BP 140/83
[2022-06-16] MEDS: INSULIN GLARGINE 100 UNITS/ML 10 ML VIAL SQ SCH (21:00)
[2022-06-17 00:04] VITALS: BP 109/62
[2022-06-17] MEDS: LEVOFLOXACIN 500 MG/D5W 100 ML 100 ML IV SCH ×2 (00:08→23:41)
[2022-06-17] MEDS: KETOROLAC 30MG VIAL (30MG/ML) IVP SCH ×7 (00:13→23:40)
[2022-06-17 04:34] VITALS: BP 106/62
[2022-06-17] MEDS: METRONIDAZOLE 500MG/100ML BAG 100 ML IVPB SCH ×3 (05:59→22:02)
[2022-06-17] MEDS: INSULIN LISPRO 100 UNIT/ML 3ML SQ SCH ×7 (06:43→21:00)
[2022-06-17 06:56] LABS: HEMATOCRIT 25.8 % (36-48); MEAN CORPUSCULAR HEMOGLOBIN 26.3 pg (27.0-33.0); MEAN CORPUSCULAR HGB CONC 31.4 g/dL (32.0-36.0); MEAN CORPUSCULAR VOLUME 83.8 fL (79-99); RED BLOOD CELL COUNT(AUTO) 3.08 MIL/uL (4.00-5.50); RED CELL DISTRIBUTION WIDTH 13.8 % (11.0-15.5); WHITE BLOOD COUNT (AUTO) 5.6 K/uL (4.8-10.8)
[2022-06-17 07:07] LABS: CREATININE 0.7 mg/dL (0.5-1.5); POTASSIUM 3.8 mmol/L (3.5-5.1)
[2022-06-17 08:25] VITALS: BP 113/59
[2022-06-17] MEDS: FAMOTIDINE 20MG VIAL IV SCH ×2 (09:00→22:03)
[2022-06-17 09:31] LABS: INR 1.07 (0.85-1.15); PROTHROMBIN TIME 11.6 SEC (9.6-11.6)
[2022-06-17] MEDS: OXYCODONE HCL 20 MG TAB.SR.12H PO SCH (09:49)
[2022-06-17] MEDS: SODIUM HYPOCHLORITE 0.25% [HALF STRENGTH] 473 ML TOPICAL SOLN TP SCH (09:49)
[2022-06-17] MEDS: ENOXAPARIN SODIUM 40 MG/0.4 ML SYRINGE SQ SCH (09:49)
[2022-06-17 12:37] VITALS: BP 115/72
[2022-06-17] MEDS ORDERED: NALOXONE HCL 0.4 MG/1 ML ML IVP PRN (13:00)
[2022-06-17] MEDS: TRAMADOL HCL 50 MG TABLET PO PRN (13:29)
[2022-06-17 17:35] VITALS: BP 115/72
[2022-06-17 20:00] VITALS: BP 117/68
[2022-06-17] MEDS: INSULIN GLARGINE 100 UNITS/ML 10 ML VIAL SQ SCH (21:00)
[2022-06-17] MEDS: 0.9%NACL 10ML VIAL IV SCH (22:00)
[2022-06-18 00:19] VITALS: BP 93/59
[2022-06-18] MEDS: TRAMADOL HCL 50 MG TABLET PO PRN (00:57)
[2022-06-18 04:00] VITALS: BP 107/65
[2022-06-18] MEDS: INSULIN LISPRO 100 UNIT/ML 3ML SQ SCH ×7 (05:55→20:30)
[2022-06-18] MEDS: KETOROLAC 30MG VIAL (30MG/ML) IVP SCH ×3 (05:59→20:33)
[2022-06-18] MEDS: METRONIDAZOLE 500MG/100ML BAG 100 ML IVPB SCH ×3 (05:59→22:12)
[2022-06-18] MEDS: 0.9%NACL 10ML VIAL IV SCH ×4 (05:59→21:02)
[2022-06-18 08:00] VITALS: BP 100/67
[2022-06-18] MEDS: FAMOTIDINE 20MG VIAL IV SCH ×2 (10:31→21:02)
[2022-06-18] MEDS: ENOXAPARIN SODIUM 40 MG/0.4 ML SYRINGE SQ SCH (10:31)
[2022-06-18] MEDS: SODIUM HYPOCHLORITE 0.25% [HALF STRENGTH] 473 ML TOPICAL SOLN TP SCH (10:32)
[2022-06-18 12:00] VITALS: BP 115/75
[2022-06-18 16:04] VITALS: BP 114/68
[2022-06-18] MEDS: MORPHINE 4 MG SYG IVP PRN (17:47)
[2022-06-18 20:00] VITALS: BP 125/79
[2022-06-18] MEDS: INSULIN GLARGINE 100 UNITS/ML 10 ML VIAL SQ SCH (20:36)
[2022-06-18] MEDS: LEVOFLOXACIN 500 MG/D5W 100 ML 100 ML IV SCH (23:12)
[2022-06-19] VITALS: BP 118/69
[2022-06-19] MEDS: KETOROLAC 30MG VIAL (30MG/ML) IVP SCH ×4 (00:06→17:59)
[2022-06-19] MEDS ORDERED: MAG/ALUM/SIMETH 30 ML UDCUP ONE (01:04)
[2022-06-19] MEDS ORDERED: MAG/ALUM/SIMETH 30 ML UDCUP PO PRN (01:30)
[2022-06-19] MEDS: 0.9%NACL 10ML VIAL IV SCH ×4 (03:06→21:02)
[2022-06-19 04:00] VITALS: BP 118/57
[2022-06-19] MEDS: METRONIDAZOLE 500MG/100ML BAG 100 ML IVPB SCH ×3 (06:03→22:12)
[2022-06-19] MEDS: INSULIN LISPRO 100 UNIT/ML 3ML SQ SCH ×8 (06:11→20:54)
[2022-06-19 08:00] VITALS: BP 115/44
[2022-06-19] MEDS: ENOXAPARIN SODIUM 40 MG/0.4 ML SYRINGE SQ SCH (10:41)
[2022-06-19] MEDS: FAMOTIDINE 20MG VIAL IV SCH ×2 (10:41→20:53)
[2022-06-19] MEDS: SODIUM HYPOCHLORITE 0.25% [HALF STRENGTH] 473 ML TOPICAL SOLN TP SCH (10:42)
[2022-06-19 12:00] VITALS: BP 118/73
[2022-06-19] MEDS ORDERED: MAGNESIUM CITRATE 296 ML SOLUTION PO ONE (13:00)
[2022-06-19] MEDS: AMOXICILLIN 500 MG CAPSULE PO SCH ×2 (14:30→22:12)
[2022-06-19] MEDS: PAROXETINE HCL 20 MG TABLET PO SCH (14:30)
[2022-06-19 15:58] VITALS: BP 99/66
[2022-06-19] MEDS: MORPHINE 4 MG SYG IVP PRN (15:58)
[2022-06-19 20:00] VITALS: BP 118/71
[2022-06-19] MEDS: TRAZODONE HCL 100 MG TABLET PO SCH (20:53)
[2022-06-19] MEDS: INSULIN GLARGINE 100 UNITS/ML 10 ML VIAL SQ SCH (21:01)
[2022-06-19] MEDS: LEVOFLOXACIN 500 MG/D5W 100 ML 100 ML IV SCH (23:46)
[2022-06-20] VITALS (7 sets, daily range): BP systolic 91–124; BP diastolic 54–71
[2022-06-20] MEDS: KETOROLAC 30MG VIAL (30MG/ML) IVP SCH ×3 (00:10→12:00)
[2022-06-20] MEDS: 0.9%NACL 10ML VIAL IV SCH ×4 (03:18→22:37)
[2022-06-20 04:45] LABS: HEMATOCRIT 23.3 % (36-48); MEAN CORPUSCULAR HEMOGLOBIN 25.8 pg (27.0-33.0); MEAN CORPUSCULAR HGB CONC 31.3 g/dL (32.0-36.0); MEAN CORPUSCULAR VOLUME 82.3 fL (79-99); RED BLOOD CELL COUNT(AUTO) 2.83 MIL/uL (4.00-5.50); RED CELL DISTRIBUTION WIDTH 13.9 % (11.0-15.5); WHITE BLOOD COUNT (AUTO) 6.5 K/uL (4.8-10.8)
[2022-06-20 04:58] LABS: CREATININE 0.8 mg/dL (0.5-1.5); POTASSIUM 3.6 mmol/L (3.5-5.1)
[2022-06-20] MEDS: AMOXICILLIN 500 MG CAPSULE PO SCH ×3 (05:41→21:43)
[2022-06-20] MEDS: METRONIDAZOLE 500MG/100ML BAG 100 ML IVPB SCH ×3 (05:41→21:50)
[2022-06-20] MEDS: INSULIN LISPRO 100 UNIT/ML 3ML SQ SCH ×7 (05:52→21:00)
[2022-06-20] MEDS: PAROXETINE HCL 20 MG TABLET PO SCH (10:22)
[2022-06-20] MEDS: SODIUM HYPOCHLORITE 0.25% [HALF STRENGTH] 473 ML TOPICAL SOLN TP SCH (10:22)
[2022-06-20] MEDS: FAMOTIDINE 20MG VIAL IV SCH ×2 (10:22→21:43)
[2022-06-20] MEDS: ENOXAPARIN SODIUM 40 MG/0.4 ML SYRINGE SQ SCH (10:22)
[2022-06-20] MEDS: MORPHINE 4 MG SYG IVP PRN ×2 (10:24→17:44)
[2022-06-20] MEDS: INSULIN GLARGINE 100 UNITS/ML 10 ML VIAL SQ SCH (21:00)
[2022-06-20] MEDS: TRAZODONE HCL 100 MG TABLET PO SCH (21:43)
[2022-06-20] MEDS: LEVOFLOXACIN 500 MG/D5W 100 ML 100 ML IV SCH (23:06)
[2022-06-21] MEDS: 0.9%NACL 10ML VIAL IV SCH ×4 (03:53→21:48)
[2022-06-21 04:00] VITALS: BP 100/67
[2022-06-21] MEDS: METRONIDAZOLE 500MG/100ML BAG 100 ML IVPB SCH ×3 (05:19→21:45)
[2022-06-21] MEDS: AMOXICILLIN 500 MG CAPSULE PO SCH ×3 (05:19→21:45)
[2022-06-21] MEDS: MORPHINE 4 MG SYG IVP PRN ×2 (06:17→15:46)
[2022-06-21] MEDS: INSULIN LISPRO 100 UNIT/ML 3ML SQ SCH ×7 (06:30→21:00)
[2022-06-21 08:00] VITALS: BP 108/74
[2022-06-21] MEDS: PAROXETINE HCL 20 MG TABLET PO SCH (09:25)
[2022-06-21] MEDS: FAMOTIDINE 20MG VIAL IV SCH ×2 (09:25→21:45)
[2022-06-21] MEDS: ENOXAPARIN SODIUM 40 MG/0.4 ML SYRINGE SQ SCH (09:26)
[2022-06-21] MEDS: SODIUM HYPOCHLORITE 0.25% [HALF STRENGTH] 473 ML TOPICAL SOLN TP SCH (09:38)
[2022-06-21 11:54] VITALS: BP 117/69
[2022-06-21 16:00] VITALS: BP 125/75
[2022-06-21] MEDS ORDERED: ALTEPLASE 2MG VIAL 2 MG/VIAL VIAL IVCATH ONE (19:30)
[2022-06-21 19:58] VITALS: BP 127/79
[2022-06-21 20:45] LABS: HEMATOCRIT 25.8 % (36-48)
[2022-06-21 20:54] LABS: RETICULOCYTE % (AUTO) 4.12 % (0.42-2.23)
[2022-06-21] MEDS ORDERED: INSULIN GLARGINE 100 UNITS/ML 10 ML VIAL SQ SCH (21:00)
[2022-06-21 21:15] LABS: THYROID STIMULATING HORMONE 3.26 uIU/mL (0.36-3.74)
[2022-06-21 21:28] LABS: % IRON SATURATION 22.7 % (22-44)
[2022-06-21] MEDS: TRAZODONE HCL 100 MG TABLET PO SCH (21:45)
[2022-06-21] MEDS: TRAMADOL HCL 50 MG TABLET PO PRN (21:46)
[2022-06-21] MEDS ORDERED: MORPHINE 4 MG SYG IM PRN (23:00)
[2022-06-21 23:32] VITALS: BP 117/69
[2022-06-22 03:46] VITALS: BP 92/66
[2022-06-22] MEDS: METRONIDAZOLE 500MG/100ML BAG 100 ML IVPB SCH ×2 (05:44→14:35)
[2022-06-22] MEDS: AMOXICILLIN 500 MG CAPSULE PO SCH ×2 (05:44→14:35)
[2022-06-22] MEDS: 0.9%NACL 10ML VIAL IV SCH ×2 (05:45→10:00)
[2022-06-22 05:56] LABS: BASOPHILS % (AUTO) 0.7 % (0.0-5.0); EOSINOPHILS % (AUTO) 3.7 % (0.0-8.0); HEMATOCRIT 25.6 % (36-48); LYMPHOCYTES % (AUTO) 32.3 % (21.0-51.0); MEAN CORPUSCULAR HGB CONC 30.1 g/dL (32.0-36.0); MEAN CORPUSCULAR VOLUME 86.5 fL (79-99); MONOCYTES % (AUTO) 9.6 % (3.0-13.0); NEUTROPHILS % (AUTO) 53.2 % (40.0-77.0); PLATELET COUNT (AUTO) 464 K/uL (130-400); RED BLOOD CELL COUNT(AUTO) 2.96 MIL/uL (4.00-5.50); RED CELL DISTRIBUTION WIDTH 14.5 % (11.0-15.5); WHITE BLOOD COUNT (AUTO) 5.9 K/uL (4.8-10.8)
[2022-06-22 06:21] LABS: CREATININE 0.9 mg/dL (0.5-1.5); CRP QUANTITATIVE 9.7 mg/L (0.00-9.0)
[2022-06-22] MEDS: INSULIN LISPRO 100 UNIT/ML 3ML SQ SCH (06:35)
[2022-06-22 06:59] LABS: ERYTHROCYTE SEDIMENTATION RATE 92 MM/HR (0-20)
[2022-06-22 08:00] VITALS: BP 108/75
[2022-06-22] MEDS ORDERED: LEVOFLOXACIN 500 MG TABLET PO SCH (09:00)
[2022-06-22] MEDS: PAROXETINE HCL 20 MG TABLET PO SCH (09:06)
[2022-06-22] MEDS: ENOXAPARIN SODIUM 40 MG/0.4 ML SYRINGE SQ SCH (09:07)
[2022-06-22] MEDS: METFORMIN HCL 500 MG TABLET PO SCH ×2 (09:07→11:24)
[2022-06-22] MEDS: SODIUM HYPOCHLORITE 0.25% [HALF STRENGTH] 473 ML TOPICAL SOLN TP SCH (09:08)
[2022-06-22] MEDS: FAMOTIDINE 20MG VIAL IV SCH (09:08)
[2022-06-22] MEDS: TRAMADOL HCL 50 MG TABLET PO PRN (11:23)
[2022-06-22] MEDS ORDERED: IRON SUCROSE COMPLEX 500 MG in 0.9% NACL 250ML 250 ML IV SCH (11:30)
[2022-06-22] MEDS ORDERED: PARO-66 PO (11:30)
[2022-06-22] MEDS ORDERED: TRAZ-258 PO (11:30)
[2022-06-22] MEDS ORDERED: METF-445 PO (11:30)
[2022-06-22] MEDS ORDERED: LEVO-70 PO (11:30)
[2022-06-22 12:00] VITALS: BP 146/94
[2022-06-22] MEDS ORDERED: EPOETIN ALFA-EPBX (NON-ESRD) 10,000 UNIT/ML VIAL SQ SCH (13:00)
[2022-06-22 16:00] VITALS: BP 129/79
== END 2022-06-22 18:30 | disposition home or self-care (01) | DRG 746 ==
LOC: EDH 12:06 → EDHIP 12:07 → 3CH 15:12
PROVIDERS: ADMIT Internal Medicine; ATTEND Internal Medicine
PROC: 0W9N0ZZ Drainage of Female Perineum, Open Approach (ICD-10-PCS; 2022-06-15)
PROC: 0WBN0ZZ Excision of Female Perineum, Open Approach (ICD-10-PCS; principal; 2022-06-15 12:27)
DX: N76.4 Abscess of vulva (principal); E43 Unspecified severe protein-calorie malnutrition; E87.1 Hypo-osmolality and hyponatremia; Z20.822 Contact with and (suspected) exposure to COVID-19; L02.215 Cutaneous abscess of perineum; L02.415 Cutaneous abscess of right lower limb; Z16.24 Resistance to multiple antibiotics; Z16.12 Extended spectrum beta lactamase (ESBL) resistance; E66.9 Obesity, unspecified; Z68.32 Body mass index [BMI] 32.0-32.9, adult; D64.9 Anemia, unspecified; D75.838 Other thrombocytosis; B96.20 Unspecified Escherichia coli [E. coli] as the cause of diseases classified elsewhere; E11.65 Type 2 diabetes mellitus with hyperglycemia; F39 Unspecified mood [affective] disorder; F41.1 Generalized anxiety disorder; F43.10 Post-traumatic stress disorder, unspecified; F43.20 Adjustment disorder, unspecified; I10 Essential (primary) hypertension; K59.00 Constipation, unspecified; Z82.49 Family history of ischemic heart disease and other diseases of the circulatory system; Z79.84 Long term (current) use of oral hypoglycemic drugs; Z79.4 Long term (current) use of insulin
CPT/HCPCS: 36415; 72193; 72197; 80048; 80053; 80202; 82728; 82746; 82948; 83036; 83540; 83550; 84145; 84443; 84703; 85014; 85018; 85025; 85027; 85045; 85610; 85651; 86140; 87070; 87076; 87077; 87186; 87635; 97039; C1894; G0378; J0330; J0692; J1100; J1170; J1450; J1650; J1756; J1885; J1956; J2001; J2175; J2250; J2270; J2405; J2704; J2710; J2997; J3010; J3360; J3370; J3490; J7030; J7050; Q9967

== ENCOUNTER → 2022-06-10 | Outpatient (CLI) | payer OTHER ==
[~2022-06-10] MED LIST changes: +AMP/SULBAC 3GM+NS 100ML 100 ML IV SCH; +LIDOCAINE HCL 4% LTA SOL 4 ML VIAL TP ONE
[2022-06-10 13:06] LABS: BASOPHILS % (AUTO) 0.2 % (0.0-5.0); EOSINOPHILS % (AUTO) 0.1 % (0.0-8.0); HEMATOCRIT 30.6 % (36-48); LYMPHOCYTES % (AUTO) 5.9 % (21.0-51.0); MEAN CORPUSCULAR HEMOGLOBIN 26.9 pg (27.0-33.0); MEAN CORPUSCULAR HGB CONC 32.7 g/dL (32.0-36.0); MEAN CORPUSCULAR VOLUME 82.3 fL (79-99); MONOCYTES % (AUTO) 6.5 % (3.0-13.0); NEUTROPHILS % (AUTO) 86.6 % (40.0-77.0); PLATELET COUNT (AUTO) 694 K/uL (130-400); RED BLOOD CELL COUNT(AUTO) 3.72 MIL/uL (4.00-5.50); RED CELL DISTRIBUTION WIDTH 13.6 % (11.0-15.5); WHITE BLOOD COUNT (AUTO) 16.7 K/uL (4.8-10.8)
[2022-06-10 13:12] LABS: CREATININE 0.9 mg/dL (0.5-1.5); INR 1.03 (0.85-1.15); POTASSIUM 4.2 mmol/L (3.5-5.1); PROTHROMBIN TIME 11.2 SEC (9.6-11.6)
[2022-06-10 13:13] LABS: PARTIAL THROMBOPLASTIN TIME 32.3 SEC (26.3-35.5)
[2022-06-10 13:27] LABS: TOTAL PROTEIN, SERUM 8.3 g/dL (6.0-8.3)
[2022-06-10 13:44] LABS: ALBUMIN 2.6 g/dL (3.5-5.0)
[2022-06-10 16:51] LABS: ERYTHROCYTE SEDIMENTATION RATE 127 MM/HR (0-20)
== END | disposition home or self-care (01) ==
LOC: WHH 10:42
PROVIDERS: ATTEND Family Medicine
DX: T81.89XD Other complications of procedures, not elsewhere classified, subsequent encounter (principal); E11.622 Type 2 diabetes mellitus with other skin ulcer; L98.492 Non-pressure chronic ulcer of skin of other sites with fat layer exposed; S31.103D Unspecified open wound of abdominal wall, right lower quadrant without penetration into peritoneal cavity, subsequent encounter; S31.40XD Unspecified open wound of vagina and vulva, subsequent encounter; R10.31 Right lower quadrant pain; L02.214 Cutaneous abscess of groin; L02.215 Cutaneous abscess of perineum; E87.6 Hypokalemia; E66.9 Obesity, unspecified; Z68.31 Body mass index [BMI] 31.0-31.9, adult; Z79.4 Long term (current) use of insulin; Z79.84 Long term (current) use of oral hypoglycemic drugs; Y83.8 Other surgical procedures as the cause of abnormal reaction of the patient, or of later complication, without mention of misadventure at the time of the procedure; X58.XXXD Exposure to other specified factors, subsequent encounter
CPT/HCPCS: 80053; 85025; 85610; 85730; 85651; 36415; 99214; A6260; J0295

== ENCOUNTER → 2022-06-24 | Outpatient (CLI) | payer OTHER ==
[~2022-06-24] MED LIST changes: -AMOX-426 PO; -IBUP-2077 PO; +LEVO-70 PO; +LIDOCAINE HCL 4% LTA SOL 4 ML VIAL TP ONE; -METF-444 PO; +METF-445 PO; +PARO-66 PO; +TRAZ-258 PO
== END | disposition home or self-care (01) ==
LOC: WHH 13:35
PROVIDERS: ATTEND Family Medicine
DX: T81.89XD Other complications of procedures, not elsewhere classified, subsequent encounter (principal); E11.622 Type 2 diabetes mellitus with other skin ulcer; L98.492 Non-pressure chronic ulcer of skin of other sites with fat layer exposed; S31.103D Unspecified open wound of abdominal wall, right lower quadrant without penetration into peritoneal cavity, subsequent encounter; S31.40XD Unspecified open wound of vagina and vulva, subsequent encounter; R10.31 Right lower quadrant pain; L02.214 Cutaneous abscess of groin; L02.215 Cutaneous abscess of perineum; E87.6 Hypokalemia; E66.9 Obesity, unspecified; Z68.31 Body mass index [BMI] 31.0-31.9, adult; Z79.4 Long term (current) use of insulin; Z79.84 Long term (current) use of oral hypoglycemic drugs; Y83.8 Other surgical procedures as the cause of abnormal reaction of the patient, or of later complication, without mention of misadventure at the time of the procedure; X58.XXXD Exposure to other specified factors, subsequent encounter
CPT/HCPCS: 99211; A4450; A6260

== ENCOUNTER → 2022-07-01 | Outpatient (CLI) | payer OTHER | END | disposition home or self-care (01) | LOC: WHH 13:30 | PROVIDERS: ATTEND Family Medicine | DX: T81.89XD Other complications of procedures, not elsewhere classified, subsequent encounter (principal); E11.622 Type 2 diabetes mellitus with other skin ulcer; L98.492 Non-pressure chronic ulcer of skin of other sites with fat layer exposed; S31.103D Unspecified open wound of abdominal wall, right lower quadrant without penetration into peritoneal cavity, subsequent encounter; S31.40XD Unspecified open wound of vagina and vulva, subsequent encounter; R10.31 Right lower quadrant pain; L02.214 Cutaneous abscess of groin; L02.215 Cutaneous abscess of perineum; E87.6 Hypokalemia; E66.9 Obesity, unspecified; Z68.31 Body mass index [BMI] 31.0-31.9, adult; Z79.4 Long term (current) use of insulin; Z79.84 Long term (current) use of oral hypoglycemic drugs; Y83.8 Other surgical procedures as the cause of abnormal reaction of the patient, or of later complication, without mention of misadventure at the time of the procedure; X58.XXXD Exposure to other specified factors, subsequent encounter | CPT/HCPCS: 99214; A6248 ==

== ENCOUNTER → 2022-07-15 | Outpatient (CLI) | payer OTHER | END | disposition home or self-care (01) | LOC: WHH 10:59 | PROVIDERS: ATTEND Family Medicine | DX: T81.89XD Other complications of procedures, not elsewhere classified, subsequent encounter (principal); S31.40XD Unspecified open wound of vagina and vulva, subsequent encounter; S31.103D Unspecified open wound of abdominal wall, right lower quadrant without penetration into peritoneal cavity, subsequent encounter; L02.214 Cutaneous abscess of groin; L02.215 Cutaneous abscess of perineum; E11.9 Type 2 diabetes mellitus without complications; I10 Essential (primary) hypertension; E66.9 Obesity, unspecified; F41.1 Generalized anxiety disorder; Z68.31 Body mass index [BMI] 31.0-31.9, adult; Z79.4 Long term (current) use of insulin; Z79.84 Long term (current) use of oral hypoglycemic drugs; X58.XXXD Exposure to other specified factors, subsequent encounter; Y83.8 Other surgical procedures as the cause of abnormal reaction of the patient, or of later complication, without mention of misadventure at the time of the procedure | CPT/HCPCS: 17250; A6248; A4450 ==

== ENCOUNTER → 2022-07-22 | Outpatient (CLI) | payer OTHER ==
[~2022-07-22] MED LIST changes: -LIDOCAINE HCL 4% LTA SOL 4 ML VIAL TP ONE
== END | disposition home or self-care (01) ==
LOC: WHH 09:53
PROVIDERS: ATTEND Family Medicine
DX: T81.89XD Other complications of procedures, not elsewhere classified, subsequent encounter (principal); S31.40XD Unspecified open wound of vagina and vulva, subsequent encounter; S31.103D Unspecified open wound of abdominal wall, right lower quadrant without penetration into peritoneal cavity, subsequent encounter; L02.214 Cutaneous abscess of groin; L02.215 Cutaneous abscess of perineum; E11.9 Type 2 diabetes mellitus without complications; I10 Essential (primary) hypertension; E66.9 Obesity, unspecified; F41.1 Generalized anxiety disorder; Z68.31 Body mass index [BMI] 31.0-31.9, adult; Z79.4 Long term (current) use of insulin; Z79.84 Long term (current) use of oral hypoglycemic drugs; X58.XXXD Exposure to other specified factors, subsequent encounter; Y83.8 Other surgical procedures as the cause of abnormal reaction of the patient, or of later complication, without mention of misadventure at the time of the procedure
CPT/HCPCS: 17250; A6248

== ENCOUNTER 2022-07-29 10:05 | Outpatient (CLI) | payer OTHER | END 2022-07-29 15:41 | disposition home or self-care (01) | LOC: WHH 10:05 | PROVIDERS: ATTEND Family Medicine | DX: T81.89XD Other complications of procedures, not elsewhere classified, subsequent encounter (principal); S31.40XD Unspecified open wound of vagina and vulva, subsequent encounter; S31.103D Unspecified open wound of abdominal wall, right lower quadrant without penetration into peritoneal cavity, subsequent encounter; L02.214 Cutaneous abscess of groin; L02.215 Cutaneous abscess of perineum; E11.9 Type 2 diabetes mellitus without complications; I10 Essential (primary) hypertension; E66.9 Obesity, unspecified; F41.1 Generalized anxiety disorder; Z68.31 Body mass index [BMI] 31.0-31.9, adult; Z79.4 Long term (current) use of insulin; Z79.84 Long term (current) use of oral hypoglycemic drugs; X58.XXXD Exposure to other specified factors, subsequent encounter; Y83.8 Other surgical procedures as the cause of abnormal reaction of the patient, or of later complication, without mention of misadventure at the time of the procedure | CPT/HCPCS: 99214 ==